=== PATIENT | male | born 1940 | race Caucasian/White ===

== ENCOUNTER 2019-05-30 19:59 | Inpatient (IN) | payer MEDICARE, BC ==
[~2019-05-30] VITALS: Ht 180.3 cm; Wt 114.7 kg
[~2019-05-30 19:59] MED LIST: ASPIRIN EC81 MG PO; COQ-10100 MG PO; COUMADIN5 MG PO; CRESTOR20 MG PO; FINASTERIDE5 MG PO; HYDROCODON-ACE1 EA10 PO; LOSARTAN-HCTZ1 EACH PO; LOVENOX150 MG SUB-Q; TOLTERODINE TART4 MG PO; TRAZODONE HCL100 MG PO; VESICARE10 MG PO; WARFARIN SODIUM5 MG PO; [UNRECOGNIZED DRUG - OTHER] PO
[2019-05-30] MEDS ORDERED: OXYBUTYNIN CHLOR5 M1 PO (20:18)
--- NOTE | 2019-05-31 00:40 | NUR ---
PT ARRIVED TO FLOOR VIA STRETCHER. HE WAS TOO WEAK TO MOVE HIMSELF OVER TO BED, 4PA TO TRANSFER PT WITH DRAWSHEET. HE IS ALERT AND ORIENTED. ORIENTED PT TO ROOM AND CALL LIGHT. STARTING ADMISSION HX AT THIS TIME.
--- NOTE | 2019-05-31 01:01 | NUR ---
VITALS AND BED WEIGHT DONE. FRESH ICE WATER GIVEN WELL. BEDSIDE TABLE AND CALL LIGHT IN REACH. PT NEEDS NOTHING MORE AT THIS TIME.
--- NOTE | 2019-05-31 01:30 | NUR ---
ADMINISTERED MEDICATIONS PT REPORTS HE IS TIRED. WILL LET HIM REST AT THIS TIME. HE IS ON 2LNC AND DENIES SOB. IV IS INFUSING FINE AND CALL LIGHT IS CLOSE.
--- NOTE | 2019-05-31 03:10 | NUR ---
PT IS RESTING WITH EYES CLOSED, RR IS EVEN AND NONLABORED, AND IV IS INFUSING FINE. CALL LIGHT IS CLOSE.
--- NOTE | 2019-05-31 03:51 | NUR ---
PT CALLED FOR ASSISTANCE AFTER SPILLING HIS URINAL ON HIS GOWN. HE DENIES FURTHER NEEDS AT THIS TIME AND STATES HE IS STARTING TO FEEL BETTER. IV IS INFUSING FINE AND CALL LIGHT IS CLOSE.
--- NOTE | 2019-05-31 05:54 | NUR ---
PT CALLED REQUESTING A WARM BLANKET. EMPTIED URINAL AND PT DENIES FURTHER NEEDS. IV IS INFUSING FINE AND CALL LIGHT IS CLOSE.
--- NOTE | 2019-05-31 07:49 | NUR ---
0728: REPORT RECIEVED FROM ALL POND. PT SLEEPING AT THIS TIME.
--- NOTE | 2019-05-31 07:50 | NUR ---
PATIENT RESTING IN BED. PATIENTS USES URINAL. PATIENT TRANSFERRED TO CHAIR. TWO PERSON ASSISTING. PATIENT'S GOWN CHANGED. LINENS CHANGED. ICE WATER GIVEN. PATIENT'S BREAKFAST ORDERED. CALL LIGHT WITHIN REACH. NO OTHER NEEDS AT THIS TIME
--- NOTE | 2019-05-31 09:17 | NUR ---
PT RESTING IN HIS CHAIR WATCHING BASKETBALL. HE DENIES ANY PAIN WHILE AT REST. HE STATES HE HAS PAIN IN HIS LEGS AND HIPS WHEN HE WALKS. HIS LOWER LEGS/FEET ARE COOL AND DUSKY WITH +1 PULSES AND SOME EDEMA NOTED WHICH THE PT STATES IS CHRONIC FOR HIM. HE HAS NO CALF PAIN. LUNG SOUNDS DECREASED BUT CLEAR AND HE DENIES ANY SOB AND HE HIS COUGH IS NON PRODUCTIVE. CALL CORREA WITHIN REACH.
--- NOTE | 2019-05-31 09:21 | NUR ---
PATIENT SITTING UP IN CHAIR. RN IN ROOM. VITAL SIGNS AND I&O DONE. CALL LIGHT WITHIN REACH. NO OTHER NEEDS AT THIS TIME
[2019-05-31] MEDS ORDERED: LOSARTAN POTASS50 MG PO (10:45)
[2019-05-31] MEDS ORDERED: HYDROCHLOROTH12.5 MG PO (10:45)
--- NOTE | 2019-05-31 11:10 | NUR ---
Pt speaking with pharmacy at this time.
--- NOTE | 2019-05-31 12:16 | NUR ---
Pt states he is doing "okay" at this time and he is eating his lunch. Sat 97% on 2l at this time.
--- NOTE | 2019-05-31 12:49 | NUR ---
MED REC COMPLETE
--- NOTE | 2019-05-31 13:11 | NUR ---
PATIENT RESTING IN BED. VITAL SIGNS AND I&O DONE. CALL LIGHT WITHIN REACH. NO OTHER NEEDS AT THIS TIME
--- NOTE | 2019-05-31 14:10 | NUR ---
Spoke with pt and his about safe discharge. Pt plans on going home when he is feeling better. Complaint of feeling weak today, but has improved. 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 Has DME equipment from past surgery but does not use. Denies concern to go home with when weakness has resolved.
--- NOTE | 2019-05-31 14:24 | NUR ---
SAT 99% ON 2L, O2 TURNED OFF. PT DENIES ANY PAIN OR SOB. CALL CORREA WITHIN REACH.
--- NOTE | 2019-05-31 16:54 | NUR ---
Sat 94% on room air, pt denies any sob.
--- NOTE | 2019-05-31 17:31 | NUR ---
PATIENT RESTING IN BED. VITAL SIGNS AND I&O DONE. HIGH TEMPERATURE. RN NOTIFIED. PATIENT'S DINNER ORDERED. CALL LIGHT WITHIN REACH. NO OTHER NEEDS AT THIS TIME
--- NOTE | 2019-05-31 17:34 | NUR ---
Pt has a temp of 101.5, he was given a dose of tylenol and an IS and instructed in it's use.
--- NOTE | 2019-05-31 19:00 | NUR ---
RECEIVED REPORT FROM SALTY TILLEY. pt RESTING IN BED, EYES CLOSED, RESPIRATIONS REGULAR AND UNLABORED, RATE = 20. CALL LIGHT WITHIN REACH. WHITEBOARD UPDATED.
--- NOTE | 2019-05-31 22:02 | NUR ---
ASSISTED DECK ENGINE OPERATOR IN PASSING MEDS TO PT. VS TAKEN AND ENTERED ALONG I&O'S. URINAL EMPTIED AND PT DENIES FURTHER NEEDS, CALL LIGHT IS CLOSE.
--- NOTE | 2019-05-31 22:10 | NUR ---
ASSESSMENT DONE. pt RESTING IN BED. DENIES PAIN AT THIS TIME. EMPTIED URINAL. ASSISTED WITH COVERS. NO FURTHER REQUESTS AT THIS TIME. CALL LIGHT WITHIN REACH.
--- NOTE | 2019-05-31 22:40 | NUR ---
IV BEEPING. ABX COMPLETED. SL. NO REQUESTS AT THIS TIME. CALL LIGHT WITHIN REACH.
--- NOTE | 2019-06-01 00:20 | NUR ---
PT CALLED FOR ASSISTANCE TO THE RESTROOM. CHANGED BEDDING AND PT WANTED HIS OWN SWEATPANTS ON. HE IS NOW BACK IN BED AND DENIES FURTHER NEEDS. CALL LIGHT IS CLOSE.
--- NOTE | 2019-06-01 02:00 | NUR ---
CALL LIGHT ON. pt STANDING AND VOIDING. SHAKY ON FEET. ASSESSMENT DONE. pt STATED "WHY DO I HAVE TO PEE SO OFTEN, I CAN'T SLEEP LIKE THIS" ANSWERED QUESTIONS. NO FURTHER REQUESTS AT THIS TIME. CALL LIGHT WITHIN REACH.
--- NOTE | 2019-06-01 07:19 | NUR ---
BEDSIDE REPORT RECEIVED PT RESTING EYES CLOSED
--- NOTE | 2019-06-01 10:00 | NUR ---
PATIENT RESTING IN BED. VITAL SIGNS AND I&O DONE. HIGH TEMPERATURE. RN NOTIFIED. CALL LIGHT WITHIN REACH. NO OTHER NEEDS AT THIS TIME
--- NOTE | 2019-06-01 11:35 | NUR ---
PT RESTING IN BED TV ON EYES CLOSED
--- NOTE | 2019-06-01 13:14 | NUR ---
PT RESTING ON SIDE EYES CLOSED
--- NOTE | 2019-06-01 13:56 | NUR ---
PATIENT SITTING UP ON THE EDGE OF THE BED. RN IN ROOM. VITAL SIGNS AND I&O DONE. SETS UP BATHROOM FOR SHOWER. PATIENT IS GOING TO TAKE A SHOWER AFTER HIS LUNCH. CALL LIGHT WITHIN REACH. NO OTHER NEEDS AT THIS TIME
--- NOTE | 2019-06-01 15:15 | NUR ---
PT HAS A FULL MEAL AFTER VISIT WITH DR LÓPEZ, APPEARS TO BE IN MUCH BETTER HUMOR. STATES HE IS TOO COLD AFTER EATING SHERBET, WARM BLANKET PROVIDED PT RESTING IN BED EYES CLOSED AT THIS TIME
--- NOTE | 2019-06-01 17:48 | NUR ---
PATIENT RESTING IN BED. VITAL SIGNS AND I&O DONE. HIGH TEMP AND BLOOD PRESSURE.PATIENT ASKS ABOUT MEDICINE TO HELP HIM SLEEP, HE SAYS HE HAS NOT BEEN ABLE TO SLEEP AND HE IS UPSET BECAUSE HE SAYS "I AM USING THE BATHROOM EVERY FIVE MINUTOS TO URINATE". RN NOTIFIED. CALL LIGHT WITHIN REACH. NO OTHER NEEDS AT THIS TIME
--- NOTE | 2019-06-01 19:12 | NUR ---
RECEIVED REPORT FROM SALTY GUARDADO. pt SITTING ON SIDE OF BED STATED "I NEED MY MEDS RIGHT NOW! I HAVE NEVER HAD A SITUATION LIKE THIS WHERE I CANNOT SLEEP" TOLD pt WILL GIVE MEDS WITHIN 20 MINUTES. pt RESPONDED "I WANT THEM NOW, I DON'T UNDERSTAND WHY YOU WON'T GIVE THEM TO ME, BUT FINE I'LL WAIT" CALL LIGHT WITHIN REACH. WHITEBOARD UPDATED.
--- NOTE | 2019-06-01 19:30 | NUR ---
IN TO DO ASSESSMENT AND GIVE MEDS. EXPLAINED THAT IV ABX COULD NOT BE GIVEN AT THIS TIME AND OFFERED POTENTIAL SOLUTIONS. pt STATED "WELL I GUESS I COULD TAKE A SHOWER NOW AND THEN TAKE MY MEDS LATER" DIE MAKER IN ROOM TO SET UP SHOWER. MEDS RETURNED TO [facility].
--- NOTE | 2019-06-01 20:00 | NUR ---
THIS MANAGER MAIL IS RECORDING THE ADL'S FOR THE PATIENT BECAUSE THE MANAGER MAIL OCTOBER SAID THAT THE PATIENT TOOK A SHOWER LAST NIGHT
--- NOTE | 2019-06-01 20:03 | NUR ---
VITALS AND I&OS DONE AND CHARTED. HELPED PT INTO THE SHOWER AND BACK OUT. DID A COMPLETE BED CHANGE. GAVE HIS MILK PER HIS REQUEST. FRESH ICE WATER WELL. CLEANED UP HIS ROOM AND EMPTIED GARBAGES. PT NEEDS NOTHING MORE AT THIS TIME.
--- NOTE | 2019-06-01 20:26 | NUR ---
pt COMPLETED SHOWER. MEDICATIONS AND ASSESSMENT DONE. NO FURTHER REQUESTS AT THIS TIME. CALL LIGHT WITHIN REACH.
--- NOTE | 2019-06-01 21:14 | NUR ---
PT CALLED D/T BEEPING IV. ABX COMPLETE AND IV IS NOW SL. ASSISTED PT TO THE RESTROOM AND BACK TO BED. HE DENIES FURTHER NEEDS AND CALL LIGHT IS CLOSE.
--- NOTE | 2019-06-01 22:52 | EKG ---
[facility] [address] [facility] [place] [address] Signed Normal sinus rhythm Normal ECG No previous ECGs available Confirmed by IVORY LÓPEZ MD ([id number]) on 06/01/2019 10:52:26 PM Electronically Signed By: IVORY LÓPEZ MD 06/01/19 2252 PATIENT NAME: EDUARDA GRIER Electrocardiogram DATE OF : 44 PHYSICIAN: IVORY LÓPEZ MD REPORT #: [id number] REPORT IS CONFIDENTIAL AND NOT TO BE RELEASED WITHOUT AUTHORIZATION
--- NOTE | 2019-06-01 23:38 | NUR ---
ROUNDED ON pt. RESTING WITH EYES CLOSED, SNORING. RATE = 18. REGULAR AND UNLABORED. CALL LIGHT WITHIN REACH.
--- NOTE | 2019-06-02 02:00 | NUR ---
ROUNDED ON pt. pt UP TO VOID. CALL LIGHT WITHIN REACH.
--- NOTE | 2019-06-02 03:10 | NUR ---
CALL LIGHT ON. pt REPORTED NOT BEING ABLE TO SLEEP. REFILLED WATER. PROVIDED SOUND MACHINE AND TYLENOL PER REQUEST. CALL LIGHT WITHIN REACH.
--- NOTE | 2019-06-02 05:20 | NUR ---
pt SHOWERED AT BEGINNING OF SHIFT. SLEPT "UNTIL MIDNIGHT" PROVIDED SOUND MACHINE. IV SL, IV ABX. INDEPENDENT IN ROOM. DEMONSTRATED IS. DROPLET PRECAUTIONS. USES CALL LIGHT APPROPRIATELY.
--- NOTE | 2019-06-02 07:34 | NUR ---
PT RESTING SOUNDLY REPORT RECEIVED
--- NOTE | 2019-06-02 09:27 | NUR ---
PT REPORTS SEVERAL HOURS OF GOOD SOUND SLEEP AND IS IN A MUCH BETTER MOOD TODAY. PT REPORTS HE WANT TO GO HOME. ENCOURAGED PT TO USE THE I.S AND AMBULATE AT REGULAR INTERVALS THIS SHIFT, HE VERBALLIZES UNDERSTANDING.
--- NOTE | 2019-06-02 09:39 | NUR ---
PT UP AMBULATES THE ROWE WELL TOLERATED RETURNS TO HIS ROOM PT USING I.S PER REQUEST
--- NOTE | 2019-06-02 10:11 | NUR ---
PATIENT SITTING UP IN BED. VITAL SIGNS AND I&O DONE. HIGH BLOOD PRESSURE. RNO NOTIFIED. CALL LIGHT WITHIN REACH. NO OTHER NEEDS AT THIS TIME
--- NOTE | 2019-06-02 11:25 | NUR ---
PT RESTING IN BED WATCHING FOOTBALL. FRESH H20 PROVIDED, I.S. AND AMBULATION ENCOURAGED.
[2019-06-02] MEDS ORDERED: AZITHROMYCIN500 MG PO (11:33)
[2019-06-02] MEDS ORDERED: CEFPODOXIME PR200 MG PO (11:34)
[2019-06-02] MEDS ORDERED: TAMIFLU30 MG PO (11:34)
== END 2019-06-02 12:20 | disposition home or self-care (01) | DRG 194 ==
LOC: ED 19:59 → MS 20:01
PROVIDERS: ADMIT Internal Medicine
DX: J11.08 Influenza due to unidentified influenza virus with specified pneumonia (principal); N17.9 Acute kidney failure, unspecified; J12.89 Other viral pneumonia; J15.9 Unspecified bacterial pneumonia; F51.04 Psychophysiologic insomnia; E78.5 Hyperlipidemia, unspecified; N40.1 Benign prostatic hyperplasia with lower urinary tract symptoms; I10 Essential (primary) hypertension; Z86.718 Personal history of other venous thrombosis and embolism; Z86.711 Personal history of pulmonary embolism; Z85.46 Personal history of malignant neoplasm of prostate; Z86.73 Personal history of transient ischemic attack (TIA), and cerebral infarction without residual deficits; Z87.891 Personal history of nicotine dependence; Z95.5 Presence of coronary angioplasty implant and graft; Z79.01 Long term (current) use of anticoagulants; Z79.899 Other long term (current) drug therapy; Z79.82 Long term (current) use of aspirin
CPT/HCPCS: 36415; 71045; 71046; 80048; 80053; 81001; 82550; 82570; 83605; 83735; 84300; 84484; 84540; 85025; 85610; 87088; 87502; 93005; 93010; 96360; 96361; 99285-25; J0696; J7030; J7121

== ENCOUNTER 2025-02-02 16:22 | Emergency (ER) | payer MEDICARE, OTHER ==
[~2025-02-02] VITALS: Ht 180.3 cm; Wt 102.6 kg
[~2025-02-02 16:22] MED LIST changes: +AZITHROMYCIN500 MG PO; +CEFPODOXIME PR200 MG PO; +HYDROCHLOROTH12.5 MG PO; +INDAPAMIDE1.25 MG PO; +JARDIANCE10 MG PO; +LOSARTAN POTASS50 MG PO; +OXYBUTYNIN CHLOR5 M1 PO; +OZEMPIC0.25 MG/01 SUB-Q; +TAMIFLU30 MG PO
[2025-02-02] MEDS ORDERED: SODIUM CHLORIDE 0.9% 500 ML IV ONE (16:45)
[2025-02-02 17:11] LABS: BASOPHILS 1.3 % (0.2-1.2); EOSINOPHILS 2.5 % (0.8-7.0); LYMPHOCYTES 20.2 % (21.8-53.1); MCH 26.2 PG (25.7-32.2); MCHC 31.3 g/dL (32.3-36.5); MCV 83.6 fL (79.0-92.2); MONOCYTES 11.2 % (5.3-12.2); NEUTROPHILS 64.2 % (34.0-67.9); RBC 3.36 M/uL (4.63-6.08)
[2025-02-02 17:26] LABS: INR 2.07 (0.80-1.30); PROTIME 22.1 Sec (11.2-14.2)
[2025-02-02 17:30] LABS: ALT (SGPT) 17.0 U/L (14-59); AST (SGOT) 16.0 U/L (15-37); GLOMERULAR FILTRATION RATE,EST 25.0 mL/min (>60); PROTEIN, TOTAL 5.8 g/dL (6.4-8.2); UREA NITROGEN 53.0 mg/dL (7-18)
[2025-02-02 17:48] LABS: BLOOD/HGB, URINE NEGATIVE (Negative); KETONE, URINE NEGATIVE (Negative); LEUK ESTERASE, URINE NEGATIVE (negative); NITRITE, URINE NEGATIVE (negative)
[2025-02-02 18:55] VITALS: BP 123/68
--- NOTE | 2025-02-03 11:24 | EKG ---
[facility] [address] [facility] [place] [address] Signed Marked sinus bradycardia with 1st degree AV block Low voltage QRS Abnormal ECG When compared with ECG of 30-MAY-2019 20:34, Vent. rate has decreased BY 31 BPM Confirmed by Andrea Reyna MD ([id number]) on 02/03/2025 11:24:18 AM Electronically Signed By: ANDREA REYNA MD 02/03/25 1124 PATIENT NAME: EDUARDA GRIER Electrocardiogram DATE OF : 44 PHYSICIAN: ANDREA REYNA MD REPORT #: [id number] REPORT IS CONFIDENTIAL AND NOT TO BE RELEASED WITHOUT AUTHORIZATION
== END 2025-02-02 18:55 | disposition home or self-care (01) ==
LOC: ED 16:22
PROVIDERS: Emergency Medicine
DX: R53.1 Weakness (principal); D64.9 Anemia, unspecified; R00.1 Bradycardia, unspecified; N28.9 Disorder of kidney and ureter, unspecified; I10 Essential (primary) hypertension; Z87.891 Personal history of nicotine dependence
CPT/HCPCS: 36415; 80053; 81003; 84484; 85025; 85610; 93005; 93010; 99284; J7040